=== PATIENT | female | born 1960 | race Caucasian/White ===

== ENCOUNTER → 2016-10-13 | Outpatient (CLI) | payer BC ==
--- NOTE | 2016-10-13 10:02 | DIAGNOSTIC IMAGING REPORT ---
RIGHT KNEE 3 VIEWS CLINICAL HISTORY: Bilateral knee pain. COMPARISON: None FINDINGS: Alignment of the right knee is anatomic. There is a suspected small right knee joint effusion. There is moderate joint space narrowing and extensive osteophytosis of the patellofemoral compartment with mild joint space narrowing and moderate osteophytosis of the medial compartment. There is no acute fracture. IMPRESSION: 1. No acute fracture. 2. Moderate osteoarthritis within the medial and patellofemoral compartments of the right knee. 3. Suspected small right knee joint effusion. Electronically signed by: Brandin Looney M.D. 10/13/2016 10:01 AM Dictated Date/Time: 10/13/2016 10:00 AM
--- NOTE | 2016-10-13 10:03 | DIAGNOSTIC IMAGING REPORT ---
LEFT KNEE 3 VIEWS HISTORY: M25.561 Knee pain, [id number] COMPARISON: None. FINDINGS: There is no fracture or dislocation. No knee effusion. Mild cartilage space narrowing within the medial compartment. Moderate cartilage space narrowing at the patellofemoral compartment. Tricompartmental marginal osteophytes. No erosions. No radiopaque foreign bodies. IMPRESSION: Mild to moderate osteoarthritis within the left knee. No fractures. Electronically signed by: Jose Baker M.D. 10/13/2016 10:02 AM Dictated Date/Time: 10/13/2016 10:00 AM
--- NOTE | 2016-10-13 10:06 | DIAGNOSTIC IMAGING REPORT ---
LEFT HAND MIN 3 VIEWS ROUTINE, RIGHT HAND MIN 3 VIEWS ROUTINE CLINICAL HISTORY: Bilateral hand pain. COMPARISON STUDY: None. FINDINGS: No fracture or dislocation within the right or left hand. Soft tissues are unremarkable. Bone mineralization is intact. Mild osteoarthritis within the DIP joints of the bilateral hands demonstrated by cartilage space narrowing and marginal osteophytes. Question of a tiny erosion at the head of the middle phalanx of the left index finger. IMPRESSION: 1. Mild osteoarthritis within the DIP joints of the bilateral hands. 2. Question of a tiny periarticular erosion at the head of the middle phalanx of the left index finger. Electronically signed by: Jose Baker M.D. 10/13/2016 10:04 AM Dictated Date/Time: 10/13/2016 10:02 AM
--- NOTE | 2016-10-13 10:18 | DIAGNOSTIC IMAGING REPORT ---
L-SPINE MIN 4 VIEWS ROUTINE CLINICAL HISTORY: Bilateral knee pain COMPARISON: None FINDINGS: There is mild levoscoliosis of the lumbar spine. No acute fracture or suspicious lesion is present. There is moderate multilevel degenerative disc disease and facet arthrosis, most pronounced at L2-L3 and L5-S1. IMPRESSION: 1. Mild levoscoliosis of lumbar spine. 2. Moderate multilevel degenerative disc disease and facet arthrosis of the lumbar spine. 3. No lumbar spine fracture. Electronically signed by: Brandin Looney M.D. 10/13/2016 10:17 AM Dictated Date/Time: 10/13/2016 10:16 AM
[2016-10-13 10:45] LABS: BASO % 0.7 %; BASO ABS # 0.06 K/uL (0-0.2); COMPLETE YES; EOS % 7.5 %; HEMATOCRIT 42.3 % (37-47); IG% 0.4 %; LYMPH ABS # 2.31 K/uL (1.2-3.4); MEAN CELL VOLUME 80.4 fL (80-100); MEAN CORPUSCULAR HEMOGLOBIN 26.4 pg (25-34); MEAN CORPUSCULAR HGB CONC 32.9 g/dl (32-36); MEAN PLATELET VOLUME 9.1 fL (7.4-10.4); MONO % 4.9 %; NEUT % 59.5 %; PLATELET COUNT 267 K/uL (130-400); RED BLOOD COUNT 5.26 M/uL (4.2-5.4); WHITE BLOOD COUNT 8.57 K/uL (4.8-10.8)
[2016-10-13 10:54] LABS: C-REACTIVE PROTEIN 1.87 mg/dl (0-0.29); RHEUMATOID FACTOR < 10.0 U/mL (0-15); TOTAL IRON BINDING CAPACITY 303 mcg/dl (250-450); URINE APPEARANCE CLOUDY (CLEAR); URINE BILIRUBIN NEG (NEG); URINE COLOR YELLOW; URINE EPITHELIAL CELL AUTO >30 /lpf (0-5); URINE NITRITE NEG (NEG); URINE SPECIFIC GRAVITY 1.035 (1.000-1.030); UROBILINOGEN NEG (NEG)
[2016-10-13 11:01] LABS: MANUAL MICROSCOPIC REQUIRED? NO; REVIEW REQ? NO
--- NOTE | 2016-10-17 10:28 | CODING QUERY MEDICAL NECESSITY ---
CQSUPPORTING DIAGNOSIS NEEDED A supporting diagnosis is required for the test/procedure performed on this patient in order for us to be reimbursed by the patient's insurance. Please provide a supporting diagnosis for the following test/procedure listed below next to the test name along with your signature. *If there is no additional diagnosis for this patient that would support the following test/procedure please document that below next to the test/procedure. Test(s)/Procedure(s) that require a supporting diagnosis: DOS 10/13/16 VITAMIN D TEST Provider Signature: Date: Thank you Azeb Ceballos [facility] Once completed, please kindly fax back to [phone] For questions please call [phone]
[2016-10-17 11:53] LABS: ALBUMIN 3.8 G/DL (3.8-4.8); GAMMA GLOBULIN 1.2 G/DL (0.8-1.7); MYELOPEROXIDASE AB <1.0 AI (<1.0); PARVOVIRUS IgG INDEX 7.2 (<0.9); PARVOVIRUS IgM INDEX 0.2 (<0.9); TOTAL PROTEIN 6.9 G/DL (6.2-8.3)
== END | disposition home or self-care (01) ==
LOC: C.RAD1850 09:02
PROVIDERS: ATTEND Internal Medicine Rheumatology
DX: M25.561 Pain in right knee (principal); M25.562 Pain in left knee; E55.9 Vitamin D deficiency, unspecified